=== PATIENT | female | born 1960 | race Caucasian/White ===

== ENCOUNTER 2017-02-18 11:24 | Inpatient (IN) | payer OTHER, SELFPAY ==
[~2017-02-18] VITALS: Ht 167.6 cm; Wt 87.6 kg
[2017-02-18] MEDS ORDERED: SODIUM CHLORIDE 0.9% 1,000 ML IV ONE (11:43)
[2017-02-18 12:37] LABS: BLOOD UREA NITROGEN 5 mg/dL (7-18)
[2017-02-18 12:42] LABS: IS PT STATUS REG ER OR PRE ER? YES
[2017-02-18] MEDS ORDERED: OMEP20TA62 PO (14:53)
[2017-02-18] MEDS ORDERED: CLON0.1T PO (14:53)
[2017-02-18] MEDS ORDERED: ASPIRIN 81 MG TABLET CHEW PO ONE (15:00)
[2017-02-18] MEDS ORDERED: NITROGLYCERIN OINT 2%, 1GM TP ONE ×2 (15:00→15:13)
[2017-02-18] MEDS ORDERED: LORA0.5T PO (15:06)
[2017-02-18] MEDS ORDERED: TRIA1TAB3 PO (15:06)
[2017-02-18] MEDS ORDERED: ASPIRIN 81 MG TABLET CHEW ONE (15:13)
[2017-02-18] MEDS ORDERED: LORazepam 0.5MG TABLET ONE (15:55)
[2017-02-18] MEDS ORDERED: ONDANSETRON ODT 4 MG ONE (15:56)
[2017-02-18] MEDS ORDERED: ONDANSETRON ODT 4 MG PO ONE (16:00)
[2017-02-18] MEDS ORDERED: LORazepam 0.5MG TABLET PO ONE (16:00)
[2017-02-18 16:14] LABS: PATH.CAST-FLAG NOT PRESENT; SPERM-FLAG NOT PRESENT; SRC-FLAG NOT PRESENT; XTAL-FLAG NOT PRESENT; YLC-FLAG NOT PRESENT
[2017-02-18] MEDS ORDERED: DOCUSATE 100 MG CAPSULE PO PRN (19:00)
[2017-02-18] MEDS ORDERED: BISACODYL 10 MG SUPP PR PRN (19:00)
[2017-02-18] MEDS ORDERED: ENALAPRILAT 1.25 MG/ML, 2ML IVPush PRN (19:00)
[2017-02-18] MEDS ORDERED: POLYETHYLENE GLYCOL 17 GM PACKET PO PRN (19:00)
[2017-02-18] MEDS ORDERED: OXYcodone IR 5MG TABLET PO PRN (19:00)
[2017-02-18] MEDS ORDERED: ACETAMINOPHEN 325 MG TABLET PO PRN (19:00)
[2017-02-18] MEDS ORDERED: ONDANSETRON 2MG/ML, 2ML IVPush PRN (19:00)
[2017-02-18] MEDS ORDERED: morphine SULFATE 10 MG/ML, 1ML IVPush PRN (19:00)
[2017-02-18 20:15] LABS: IS PT STATUS REG ER OR PRE ER? NO
[2017-02-18 20:27] VITALS: BP 124/80
[2017-02-18] MEDS: LISINOPRIL 10 MG TABLET PO SCH (21:48)
[2017-02-18] MEDS: HEPARIN 5,000 UNITS/ML, 1ML SQ SCH (21:48)
[2017-02-19 02:32] VITALS: BP 96/64
[2017-02-19 02:59] LABS: IS PT STATUS REG ER OR PRE ER? NO
[2017-02-19] MEDS: HEPARIN 5,000 UNITS/ML, 1ML SQ SCH ×2 (05:54→12:59)
[2017-02-19 08:24] LABS: ASPARTATE AMINO TRANSFERASE 93 U/L (15-37); BLOOD UREA NITROGEN 12 mg/dL (7-18)
[2017-02-19] MEDS: LISINOPRIL 10 MG TABLET PO SCH (08:36)
[2017-02-19 08:39] VITALS: BP 105/72
[2017-02-19] MEDS ORDERED: REGADENOSON 0.4 MG/5 ML SYRINGE ONE (08:41)
[2017-02-19] MEDS ORDERED: LORazepam 0.5MG TABLET PO SCH (09:00)
[2017-02-19] MEDS ORDERED: TRIAMTERENE-HCTZ 37.5/25 MG TABLET PO SCH (09:00)
[2017-02-19] MEDS ORDERED: OMEPRAZOLE 20 MG CAPSULE.DR PO SCH (09:00)
[2017-02-19 15:13] VITALS: BP 105/71
[2017-02-19] MEDS ORDERED: DOCU-30 PO (17:47)
[2017-02-19] MEDS ORDERED: ACET325T14 PO (17:47)
[2017-02-19] MEDS ORDERED: LISI5TAB7 PO (17:47)
[2017-02-19] MEDS ORDERED: MULT-257 PO (17:49)
[2017-02-20] MEDS ORDERED: LISINOPRIL 10 MG TABLET PO SCH (09:00)
== END 2017-02-19 18:40 | disposition home or self-care (01) | DRG 206 ==
LOC: ED 15:38 → EDIP 17:49 → 5SO 20:06
PROVIDERS: ADMIT Internal Medicine; ATTEND Internal Medicine
DX: M94.0 Chondrocostal junction syndrome [Tietze] (principal); E87.1 Hypo-osmolality and hyponatremia; M79.1 Myalgia; I10 Essential (primary) hypertension; Z90.710 Acquired absence of both cervix and uterus; F12.90 Cannabis use, unspecified, uncomplicated; F41.9 Anxiety disorder, unspecified; K21.9 Gastro-esophageal reflux disease without esophagitis; K76.0 Fatty (change of) liver, not elsewhere classified; Z79.82 Long term (current) use of aspirin; R61 Generalized hyperhidrosis; K59.00 Constipation, unspecified; F10.10 Alcohol abuse, uncomplicated; Z84.89 Family history of other specified conditions
CPT/HCPCS: 36415; 74022; 76700; 78452; 80048; 80053; 80061; 81001; 82040; 83036; 83735; 84439; 84443; 84484; 85025; 93005; 93017; 96360; 96361; J1644; J2785; Q0162; A9502; C9898; J7030